=== PATIENT | female | born 1960 | race Hispanic/Latino ===

== ENCOUNTER 2017-07-12 11:13 | Outpatient (CLI) | payer OTHER ==
[2017-07-12 12:45] LABS: #Basophils 0.1 thou/uL (0.0-0.2); #Eosinphils 0.1 thou/uL (0.0-0.7); #Lymphocytes 2.5 thou/uL (1.20-3.40); #Monocytes 0.4 thou/uL (0.11-0.59); #Neutrophils 4.2 thou/uL (1.40-6.50); %Basophils 1.2 % (0.0-1.0); %Eosinophils 1.6 % (0.0-10.0); %Lymphocytes 34.2 % (21.0-51.0); Hemoglobin 14.4 g/dL (12.0-16.0); Mean Corpuscular Hemoglobin 33.4 pg (27.0-31.0); Mean Corpuscular Volume 92.8 fl (81.0-99.0); Mean Platelet Volume 6.2 fL (7.4-10.4); Platelet Count 384 thou/uL (130-400); RBC Distribution Width 10.1 % (11.5-14.5); White Blood Cell (WBC) Count 7.4 thou/uL (4.8-10.8)
[2017-07-12 13:10] LABS: ALT (SGPT) 24 U/L (8-55); AST (SGOT) 20 U/L (5-34); Albumin 4.2 g/dL (3.5-5.0); Alkaline Phosphatase 118 U/L (40-150); Anion Gap 16 mmol/L (10-20); BUN (Urea Nitrogen) 14 mg/dL (9.8-20.1); Bilirubin, Total 0.5 mg/dL (0.2-1.2); Calc. Creatinine Clearance 0 mL/min (70-130); Calcium 9.5 mg/dL (7.8-10.44); Cardiac Risk 4.6 (Less than 4.5); Chloride 103 mmol/L (98-107); Cholesterol 155 mg/dl (< 200 Desired); Estimated GFR-MDRD 70; Globulin 3.1 g/dL (2.4-3.5); Glucose 107 mg/dL (70-105); HDL Cholesterol 34 mg/dL (>60 Neg Risk); LDL Cholesterol, Calculated 70 mg/dL; Potassium 4.5 mmol/L (3.5-5.1); Protein, Total 7.3 g/dL (6.0-8.3); Sodium 137 mmol/L (136-145); Triglycerides 256 mg/dL (Less than 150); Uric Acid 10.1 mg/dL (2.6-6.0)
[2017-07-12 13:25] LABS: Carbon Dioxide 23 mmol/L (22-29)
== END 2017-07-12 11:14 | disposition home or self-care (01) ==
LOC: HPCALD 11:13
PROVIDERS: ATTEND Family Medicine
DX: I10 Essential (primary) hypertension (principal); M10.071 Idiopathic gout, right ankle and foot
CPT/HCPCS: 80053; 80061; 84443; 84550; 85025

== ENCOUNTER 2018-03-04 12:07 | Emergency (ER) | payer OTHER, BC ==
[2018-03-04] MEDS ORDERED: Adacel (T-DAP) 0.5 ML VIAL ONE (12:29)
[2018-03-04] MEDS ORDERED: Bacitracin Zinc 1 Packet ONE (13:09)
== END 2018-03-04 13:25 | disposition home or self-care (01) ==
LOC: BURERS 12:07
DX: S61.411A Laceration without foreign body of right hand, initial encounter (principal); M10.9 Gout, unspecified; I10 Essential (primary) hypertension; F41.9 Anxiety disorder, unspecified; Z79.899 Other long term (current) drug therapy; W26.8XXA Contact with other sharp object(s), not elsewhere classified, initial encounter
CPT/HCPCS: 12001; 90471; 90715

== ENCOUNTER 2018-03-11 09:48 | Emergency (ER) | payer OTHER, BC ==
[2018-03-11] MEDS ORDERED: Bacitracin Zinc 1 Packet ONE (10:11)
== END 2018-03-11 10:12 | disposition home or self-care (01) ==
LOC: BURERS 09:48
DX: S61.411D Laceration without foreign body of right hand, subsequent encounter (principal); M10.9 Gout, unspecified; I10 Essential (primary) hypertension; F41.9 Anxiety disorder, unspecified; X58.XXXD Exposure to other specified factors, subsequent encounter

== ENCOUNTER 2022-03-27 14:35 | Emergency (ER) | payer BC, OTHER ==
[2022-03-27] MEDS ORDERED: Lidocaine 1% PF 5 ML VIAL ONE (15:14)
== END 2022-03-27 16:05 | disposition home or self-care (01) ==
LOC: BURERS 14:35
DX: S61.412A Laceration without foreign body of left hand, initial encounter (principal); I10 Essential (primary) hypertension; M10.9 Gout, unspecified; W26.8XXA Contact with other sharp object(s), not elsewhere classified, initial encounter; Z87.19 Personal history of other diseases of the digestive system
CPT/HCPCS: 12002

== ENCOUNTER 2025-09-10 15:38 | Emergency (ER) | payer OTHER | END 2025-09-10 16:31 | disposition home or self-care (01) | LOC: BURERS 15:38 | DX: M25.562 Pain in left knee (principal); I10 Essential (primary) hypertension; W18.30XA Fall on same level, unspecified, initial encounter; Y93.66 Activity, soccer | CPT/HCPCS: 99283 ==